=== PATIENT | male | born 1950 | race Caucasian/White ===

== ENCOUNTER 2021-08-31 06:52 | Day surgery (SDC) | payer MEDICARE, BC ==
[~2021-08-31] VITALS: Ht 175.3 cm; Wt 74.8 kg
[~2021-08-31 06:52] MED LIST: PRAVASTATIN SOD20 MG PO; PRED FORTE1 %
[2021-08-31 09:36] VITALS: BP 103/74
== END 2021-08-31 09:20 | disposition home or self-care (01) ==
LOC: ENDO 06:52
PROVIDERS: ATTEND Surgery
PROC: 0DJD8ZZ Inspection of Lower Intestinal Tract, Via Natural or Artificial Opening Endoscopic (ICD-10-PCS; principal; 2021-08-31)
DX: Z12.11 Encounter for screening for malignant neoplasm of colon (principal); Z86.010 Personal history of colon polyps